=== PATIENT | male | born 1970 | race Caucasian/White ===

== ENCOUNTER → 2018-11-02 | Outpatient (CLI) | payer OTHER ==
--- NOTE | 2018-11-02 22:33 | MR ---
EXAMINATION TYPE: MR knee LT wo con DATE OF EXAM: 11/02/2018 COMPARISON: NONE HISTORY: Lt knee pain x 2 mos TECHNIQUE: Multiplanar, multisequence images of the knee is performed without IV contrast. FINDINGS: MEDIAL MENISCUS: Anterior horn is intact without tear. Increased oblique signal posterior horn appear s to extend to inferior articular surface sagittal image 26. Some medial extrusion of medial meniscus as seen on coronal images. LATERAL MENISCUS: Anterior and posterior horns are intact without tear. CRUCIATE LIGAMENTS: The anterior and posterior cruciate ligaments are intact and unremarkable. COLLATERAL LIGAMENTS: The medial collateral ligament and lateral collateral ligament complex are inta ct and unremarkable. EXTENSOR MECHANISM: Visualized quadriceps and patellar tendons are intact. EFFUSION: There is small suprapatellar joint effusion. POPLITEAL CYST: No popliteal/maxwell cyst. TRICOMPARTMENT SPACES: Mild tricompartment joint space loss and tricompartmental joint space spurring CARTILAGE: Some chondromalacia patella with thinning of articular cartilage along posterior patellar pole inferior aspect. Some thinning of articular cartilage medial tibial femoral compartment. BONE MARROW SIGNAL: Focus of heterogeneous increased T2 signal posterior central patella axial image 22 and sagittal image 16 as site of cartilaginous loss. OTHER: No additional significant abnormality is appreciated. IMPRESSION: 1. Oblique full thickness tear posterior horn medial meniscus. 2. Mild to moderate tricompartment degenerative changes as detailed above. 3. Small suprapatellar joint effusion.
== END | disposition home or self-care (01) ==
LOC: RADMRIMAIN 20:53
PROVIDERS: ATTEND Orthopaedic Surgery Sports Medicine
DX: S83.242A Other tear of medial meniscus, current injury, left knee, initial encounter (principal); M17.12 Unilateral primary osteoarthritis, left knee

== ENCOUNTER → 2019-04-19 | Outpatient (CLI) | payer OTHER ==
[2019-04-19 14:03] LABS: Basophils # (A) 0.2 k/uL (0-0.2); Basophils % (A) 3 %; Eosinophils # (A) 0.5 k/uL (0-0.7); Eosinophils % (A) 6 %; HCT 49.1 % (39.0-53.0); HGB 16.5 gm/dL (13.0-17.5); Lymphocytes # (A) 2.8 k/uL (1.0-4.8); Lymphocytes % (A) 33 %; MCHC 33.6 g/dL (31.0-37.0); MCV 86.4 fL (80.0-100.0); Monocytes # (A) 0.4 k/uL (0-1.0); Monocytes % (A) 5 %; Neutrophils # (A) 4.3 k/uL (1.3-7.7); Neutrophils % (A) 52 %; Platelet Count 244 k/uL (150-450); RBC 5.68 m/uL (4.30-5.90); RDW 13.3 % (11.5-15.5); WBC 8.3 k/uL (3.8-10.6)
== END ==
LOC: LABPAT 12:49
PROVIDERS: ATTEND Orthopaedic Surgery Sports Medicine
DX: Z01.818 Encounter for other preprocedural examination (principal); Z01.812 Encounter for preprocedural laboratory examination
CPT/HCPCS: 36415; 85025; 93005

== ENCOUNTER 2019-04-21 10:56 | Day surgery (SDC) | payer OTHER ==
[2019-04-19 09:50] VITALS: BMI 54.2
[~2019-04-21 10:56] MED LIST: DEXAMETHASONE SOD PHOSPHATE 10 MG/ML 1 ML VIAL IV ONE; HYDROmorphone 0.5 MG/0.5 ML SYRINGE IVP PRN; LACTATED RINGERS 1,000 ML IV SCH; MIDAZOLAM 2 MG/2 ML VIAL IV PRN; ONDANSETRON 4 MG/2 ML VIAL IVP ONE; SCOPOLAMINE 1.5MG/72HR PATCH TRANSDERM ONE; ceFAZolin 3 GM in SODIUM CHLORIDE 0.9% 100 ML IVPB ONE
[2019-04-21] MEDS ORDERED: SUCCINYLCHOLINE CHLORIDE VIAL 200 MG/10 ML VIAL IV ONE (12:27)
[2019-04-21] MEDS ORDERED: PROPOFOL 10 MG/ML 20 ML VIAL IV ONE (12:27)
[2019-04-21] MEDS ORDERED: MIDAZOLAM 2 MG/2 ML VIAL ONE (12:27)
[2019-04-21] MEDS ORDERED: LIDOCAINE 1% INJ 10MG/ML (20 ML MDV) ONE (12:27)
[2019-04-21] MEDS ORDERED: fentaNYL (PF) 50 MCG/ML 2 ML AMP ONE (12:27)
[2019-04-21] MEDS ORDERED: BUPIVACAINE (PF) 0.25% 30 ML VIAL SQ ONE ×2 (12:45)
[2019-04-21 13:37] VITALS: TEMP 97.6
[2019-04-21] MEDS ORDERED: KETOROLAC 30 MG/ML 1 ML VIAL IVP ONE (13:44)
[2019-04-21 14:21] VITALS: RESP 16
--- NOTE | 2019-04-21 14:23 | OP ---
OPERATIVE REPORT DATE OF PROCEDURE: 04/21/2019 PREOPERATIVE DIAGNOSIS: Left knee posterior horn medial meniscus tear. POSTOPERATIVE DIAGNOSES: 1. Left knee posterior horn medial meniscus tear. 2. Left knee thickened infrapatellar and medial shelf plica. 3. Left knee chondromalacia of the medial femoral condyle. 4. Left knee multiple intra-articular loose bodies. PROCEDURE PERFORMED: 1. Left knee arthroscopic partial meniscectomy. 2. Left knee arthroscopic lysis of adhesions. 3. Left knee arthroscopic chondroplasty of medial femoral condyle. 4. Left knee arthroscopic removal of loose body. SURGEON: Joshua Duff MD ANESTHESIA: General endotracheal. ESTIMATED BLOOD LOS: Less than 20 mL. TOURNIQUET: None. DRAINS: None. COMPLICATIONS: None apparent. DISPOSITION: Postanesthesia care unit. INDICATIONS: Zelalem is a very pleasant 48-year-old male with left knee pain. Physical examination and MRI are consistent with tearing of the posterior horn of the medial meniscus. I had a long discussion with him with regard to treatment options. At this point, he feels if he has failed conservative management and would like to proceed with operative intervention. The risks of the procedure were discussed with him in detail. These risks include, but are not limited to risk of infection, nerve damage, bleeding, pain, and a small risk of deep vein thrombosis which could lead to fatal pulmonary embolism. The patient understands these risks and wishes to proceed with surgical procedure. Examination under anesthesia range of motion: Right full, left full, effusion right none, left mild Nini'. Right normal good end point. Left normal good end point. Pivot shift right grade 0, left grade 0. Posterior drawer right with good end point. Left normal good end point. Varus laxity right none, left none valgus laxity right none, left none. External rotation right normal, left normal. ARTHROSCOPIC FINDINGS: Suprapatellar pouch was normal. Medial gutter thickened medial shelf plica. Lateral gutter was normal. Grade 2 change on the central aspect of patella, trochlea. Diffuse grade II-III change of the central aspect of the trochlea. Patellar tracking is normal. Medial femoral condyle had areas of grade II with small areas of grade III change on the posterior aspect of the medial femoral condyle. There were multiple loose chondral flaps noted around the periphery. Medial tibial plateau. Mild grade 1 change medial meniscus complex tear of the posterior horn of the medial meniscus. Lateral femoral condyle normal chondral surfaces, lateral tibial plateau. Mild grade 1 change. Lateral meniscus was normal. Anterior cruciate ligament complete. Normal posterior cruciate ligament. Normal infrapatellar notch thickened inferior plica with multiple cartilaginous loose bodies. The largest of which was approximately 5 mm in diameter. DESCRIPTION OF THE PROCEDURE: Patient identified in the preoperative holding area. Surgical sites marked by both the patient and myself. He was given 2 g of Ancef IV for appropriate left prophylactic purposes present transferred to the operative suite. He was placed supine on the operative table. General anesthetic was then administered and dosed per the anesthesia without apparent complication. Examination under anesthesia was then performed. The findings noted above. Tourniquet was then placed high on the left upper thigh well-padded in preparation for surgery. Tourniquet was not applied to the left upper extremity. Left lower extremity. The patient's left lower extremity than prepped and draped in usual sterile fashion. Standard surgical pause undertaken to ensure that we were operating the correct site and that appropriate preoperative antibiotics were given. All staff were in agreement we proceeded. The knee was then insufflated to 120 mL sterile saline solution. This was done to gradually distend the joint. A standard inferolateral portal was then made. A 30 degree arthroscope. The suprapatellar pouch. The scope pump pressure was set to 60 mmHg and maintained at that level throughout the entire case. Next utilizing an 18- gauge spinal needle to topically localize the placement, the inferomedial port was made under direct visualization. A standard diagnostic arthroscopy of the knee was then performed. FINDINGS: Noted above. Attention 1st drawn to the inferior notch. A 2nd inferior plica. There was also thickened medial shelf plica and multiple cartilaginous loose bodies noted within the anterior compartment knee. The plica was released with a biter, debrided back to stable tissue utilizing synovial shaver. The chondral loose bodies were removed with synovial shaver as well as with a pituitary grasper. Attention was drawn to the medial compartment. A complex tear of the posterior horn of the medial meniscus. This was degenerative in nature. This tear was deemed a repair over the meniscus tear was then debrided with a combination of biters and a shaver back to stable tissue. Approximately 50% of the posterior horn of the medial meniscus remained intact after debridement. Next, the arthroscope was placed medial to the posterior cruciate ligament through the notch to the posteromedial compartment knee. Of note, there were no residual flap tears or loose bodies noted. The posterior root attachment was carefully inspected and found to be intact. At this point time no further exam. At this point time was proceeded to evaluate the medial femoral condyle. Two fairly significant loose chondral flaps around the periphery of a grade 2-3 chondral wear on the posterior aspect of the weightbearing surface medial femoral condyle. A very gentle chondroplasty was then performed to debride the loose chondral flaps back to stable tissue. This was done with a synovial shaver very carefully with synovial shaver. At this point time no further work was deemed necessary. The knee was thoroughly irrigated thoroughly irrigated and then drained with an outflow cannula. The scope was removed from the knee. Subscript portals were then closed with 3-0 nylon interrupted suture. Sterile compressive dressing was then applied. All sponge and needle counts were deemed correct prior to closure. The patient tolerated the procedure without apparent complication. He was transferred recovery room in stable condition. MMODL / IJN: [id number] /
[2019-04-21 15:01] VITALS: BP 131/74; PULSE 71
== END 2019-04-21 15:21 | disposition home or self-care (01) ==
LOC: OR 10:56
PROVIDERS: ATTEND Orthopaedic Surgery Sports Medicine
DX: S83.242A Other tear of medial meniscus, current injury, left knee, initial encounter (principal); X50.1XXA Overexertion from prolonged static or awkward postures, initial encounter; M23.8X2 Other internal derangements of left knee; M67.52 Plica syndrome, left knee; M94.262 Chondromalacia, left knee; M23.42 Loose body in knee, left knee; I10 Essential (primary) hypertension; R00.2 Palpitations; R06.02 Shortness of breath; Z90.49 Acquired absence of other specified parts of digestive tract; E66.9 Obesity, unspecified; Z68.43 Body mass index [BMI] 50.0-59.9, adult; Z79.899 Other long term (current) drug therapy; Z91.09 Other allergy status, other than to drugs and biological substances
CPT/HCPCS: 84132; 29881; J2250; J0330; J1100; J0690; J2405; J2001; J3010; J1885; J2704

== ENCOUNTER → 2019-07-15 | Outpatient (CLI) | payer OTHER ==
--- NOTE | 2019-07-15 14:34 | CT ---
EXAMINATION TYPE: CT lumbar spine wo con DATE OF EXAM: 07/15/2019 COMPARISON: HISTORY: Low Back Pain x 20 years. Numbness and weakness down both legs. Hx of back surgery in 2008 CT DLP: 1761 mGycm CONTRAST: None TECHNIQUE: CT of the lumbar spine is performed on a spiral scan at 3 mm thick sections. Reconstructed images are performed in the coronal and sagittal planes. FINDINGS: T12-L1: There is disc space narrowing. Some endplate spurring is present with mild anterior thecal sa c contact. No AP spinal canal stenosis or neural foraminal stenosis is present. L1-L2: Vacuum disc phenomenon is present. Endplate spurring is present on the left paracentral region with mild to moderate anterior thecal sac compression. No AP spinal canal stenosis is present. Moder ate bilateral foraminal narrowing is present. L2-L3: There is narrowing of disc height to this level. Vacuum disc phenomenon is present. No AP spin al canal stenosis is present. Neural foramen are patent. L3-L4: Vacuum disc phenomenon is present. There is mild disc space narrowing. No focal disc herniatio n is evident. No AP spinal canal stenosis is evident. There is moderate right and mild left foraminal narrowing. L4-L5: Broad-based disc bulge is present with anterior thecal sac contact. No AP spinal canal stenosi s is present. Mild to moderate bilateral foraminal narrowing is present. Vacuum disc phenomenon is pr esent. L5-S1: There is mild narrowing of disc space. No focal disc herniation is evident. No spinal canal st enosis or neural foraminal stenosis is present. Facet degenerative changes and vacuum phenomenon are present. Vertebral alignment appears normal. Sacroiliac joint degenerative changes and vacuum phenomenon are p resent. Left renal stone inferior pole is present. IMPRESSION: 1. Multilevel degenerative disc changes. 2. Foraminal narrowing which appears mild to moderate L3-4 and L4-5
== END | disposition home or self-care (01) ==
LOC: RADCTMAIN 08:05
PROVIDERS: ATTEND Family Medicine
DX: M51.36 Other intervertebral disc degeneration, lumbar region (principal); M48.061 Spinal stenosis, lumbar region without neurogenic claudication; Z88.5 Allergy status to narcotic agent
CPT/HCPCS: 72131

== ENCOUNTER 2020-06-06 12:36 | Observation (INO) | payer OTHER ==
[2020-06-06] MEDS ORDERED: ASPIRIN 81 MG PO STA (13:21)
[2020-06-06 13:46] LABS: Basophils # (A) 0.2 k/uL (0-0.2); Basophils % (A) 2 %; Eosinophils # (A) 0.5 k/uL (0-0.7); Eosinophils % (A) 4 %; HCT 46.1 % (39.0-53.0); Lymphocytes # (A) 2.7 k/uL (1.0-4.8); Lymphocytes % (A) 24 %; MCHC 34.8 g/dL (31.0-37.0); MCV 83.3 fL (80.0-100.0); Mean Platelet Volume 7.6; Monocytes # (A) 0.5 k/uL (0-1.0); Monocytes % (A) 5 %; Neutrophils # (A) 7.3 k/uL (1.3-7.7); Neutrophils % (A) 64 %; Platelet Count 326 k/uL (150-450); RBC 5.53 m/uL (4.30-5.90); RDW 12.7 % (11.5-15.5); WBC 11.3 k/uL (3.8-10.6)
[2020-06-06 13:56] LABS: ALT 42 U/L (4-49); AST 48 U/L (17-59); African American GFR (CKD) >90 (>60 ml/min/1.73 sqM); Albumin 4.2 g/dL (3.5-5.0); Alkaline Phosphatase 74 U/L (38-126); Anion Gap 8 mmol/L; Blood Urea Nitrogen 20 mg/dL (9-20); Calcium 9.6 mg/dL (8.4-10.2); Carbon Dioxide 29 mmol/L (22-30); Chloride 100 mmol/L (98-107); Glucose 139 mg/dL (74-99); INR 0.9 (<1.2); Non-African American GFR(CKD) >90 (>60 ml/min/1.73 sqM); Partial Thromboplastin Time 24.7 sec (22.0-30.0); Prothrombin Time 10.2 sec (9.0-12.0); Sodium 137 mmol/L (137-145); Total Protein 8.3 g/dL (6.3-8.2)
[2020-06-06 14:03] LABS: Potassium 4.3 mmol/L (3.5-5.1)
--- NOTE | 2020-06-06 14:38 | US ---
EXAMINATION TYPE: US scrotum with doppler. Grayscale and color Doppler Duplex imaging performed of t luisa scrotum. DATE OF EXAM: 06/06/2020 COMPARISON: NONE CLINICAL HISTORY: scrotum pain at times. Right medial groin and scrotal pain, pelvic pain x 3 weeks n oted after coughing spells. EXAM MEASUREMENTS: TESTICLES: Right Testicle: 4.9 x 3.1 x 2.8 cm Left Testicle: 4.5 x 2.9 x 2.4 cm EPIDIDYMIS HEAD: Right Epididymis: 1.3 x 1.0 x 1.1 cm Left Epididymis: 1.2 x 1.1 x 1.2 cm PW/ color flow Doppler was performed to assess for testicular vascularity; good bilateral color flow and waveforms are seen. There is no evidence of testicular torsion. Presence of hydroceles: seen in right scrotal sac = 0.8 x 0.9 x 0.9cm Presence of varicoceles: no Patent upper Right GSV is noted and is also area of pain. IMPRESSION: 1. Small right hydrocele
--- NOTE | 2020-06-06 14:47 | XR ---
EXAMINATION TYPE: XR chest 2V DATE OF EXAM: 06/06/2020 COMPARISON: NONE TECHNIQUE: PA and lateral views submitted. HISTORY: Chest pain FINDINGS: The lungs are clear and there is no pneumothorax, pleural effusion, or focal pneumonia. Coarsened t here are perihilar interstitium. No pleural effusion or pneumothorax. No focal pneumonia. IMPRESSION: 1. Chronic for bronchitis or interstitial pneumonitis.
--- NOTE | 2020-06-06 15:45 | CT ---
EXAMINATION TYPE: CT angio tho/abd W Run Off DATE OF EXAM: 06/06/2020 COMPARISON: HISTORY: chest pain, groin pain CT DLP: 5144.2 mGycm Automated exposure control for dose reduction was used. CONTRAST: CT scan of the abdomen pelvis is performed with IV Contrast, patient injected with 125 mL of Isovue 3 70. FINDINGS- LUNGS-peripheral subsegmental consolidation in the right lung. Correlate for pneumonitis. No pleural effusion. No consolidation. Thoracic aorta of normal caliber. Assessment of the aortic root limited d ue to motion. Heart size normal. Evaluation the pulmonary arteries nondiagnostic due to phase imaging LIVER/GB-postcholecystectomy changes. Ill-defined enhancement in the peripheral margin the right lobe the liver on axial image 48 is nonspecific and too small to characterize could represent a flash hem angioma. Six-month follow-up could be obtained to confirm stability.. PANCREAS- No gross abnormality is seen. SPLEEN- No gross abnormality is seen. ADRENALS-1.7 cm myelolipoma or lipoma left adrenal gland.. KIDNEYS/BLADDER-punctate nonobstructing left renal calculus phase of imaging limits assessment for ma ss.. BOWEL-bowel gas pattern nonspecific. LYMPH NODES- No greater than 1cm abdominal or pelvic lymph nodes areappreciated. OSSEOUS STRUCTURES-multilevel severe hypertrophic and degenerative disc disease noted.. OTHER- aorta of normal caliber. Visualized iliac, femoral, popliteal vessels are patent. Assessment trifurcation vessels limited due to diminutive size. Correlate with arteriogram as clinically warrant ed. IMPRESSION- 1. Groundglass changes right lower lobe correlate for pneumonitis. 2. Punctate nonobstructing left renal calculus. 3. See above.
[2020-06-06 16:16] LABS: Appearance,Urine Clear (Clear); Bilirubin,Urine Negative (Negative); Blood,Urine Negative (Negative); Color,Urine Yellow; Glucose,Urine (UA) Negative (Negative); Ketones,Urine Negative (Negative); Leukocyte Esterase,Urine Negative (Negative); Nitrite,Urine Negative (Negative); PH, Urine 6.5 (5.0-8.0); Protein,Urine Negative (Negative); Urobilinogen,Urine <2.0 mg/dL (<2.0)
[2020-06-06 16:17] LABS: Specific Gravity,Urine >1.050 (1.001-1.035)
[2020-06-06] MEDS ORDERED: HYDROmorphone 0.5 MG/0.5 ML SYRINGE IVP STA (16:25)
--- NOTE | 2020-06-06 16:34 | ED ---
Recheck HPI <Manuel Miller - Last Filed: 06/06/20 17:54> - General Source: patient Mode of arrival: ambulatory Limitations: no limitations <Alexandra Chinchilla - Last Filed: 06/06/20 17:59> - General Chief Complaint: Recheck/Abnormal Lab/Rx Stated Complaint: rib & groin pain Time Seen by Provider: 06/06/20 12:56 - History of Present Illness Initial Comments: 49o male presenting for numerous complaints. pt states that a few weeks ago he had left going pain that then went to the right groin, then was both then went away. He states he has also had band like crushing pain around the chest wall that radiates into the back. He denies it feeling like abdominal pain, denies nausea, vomiting, diarrhea, jaw or arm pain. Denies coolness or pallor of the extremities, or leg pain with ambiulation. pt states that he sometimes gets a sharp pain in his scrotum when walking. Denies it being present now. Denies ur inary symptoms. he states he went to a hospital in [place], [place] that was affiliated [facility] after developing the chest/rib discomfort. Pt states that they did two troponins, gave him valium, diludid, and toradol and was sent home. pt states the groin pain came back and he didnt mention it to them there. patient states the chest pain has been present since. he denies dyspnea, dyspnea on exertion, hx of cancer, DVT/PE, trauma, surgeries, immoblization or exogenous hormone use. Patient has no additional complaints. Upon arrival pt appears well nontoxc in no distress. (Alexandra Chinchilla) - Related Data Home Medications Medication Instructions Recorded Confirmed Nebivolol HCl [Bystolic] 10 mg PO DAILY 04/19/19 06/06/20 amLODIPine [Norvasc] 5 mg PO DAILY 04/19/19 06/06/20 hydroCHLOROthiazide [Hydrodiuril] 25 mg PO DAILY 04/19/19 06/06/20 lisinopriL [Zestril] 5 mg PO DAILY 04/19/19 06/06/20 Orphenadrine [Norflex] 100 mg PO Q12H 06/06/20 06/06/20 Sertraline HCl [Zoloft] 50 mg PO DAILY 06/06/20 06/06/20 Allergies Allergy/AdvReac Type Severity Reaction Status Date / Time adhesive Allergy Rash/Hives Verified 06/06/20 13:23 codeine AdvReac Nausea & Verified 06/06/20 13:23 Vomiting Review of Systems ROS Other: All systems not noted in ROS Statement are negative. <Manuel Miller - Last Filed: 06/06/20 17:54> ROS Other: All systems not noted in ROS Statement are negative. <TristinalexusAnnAlexandra L - Last Filed: 06/06/20 17:59> ROS Statement: Those systems with pertinent positive or pertinent negative responses have been documented in the HPI. Past Medical History Past Medical History: GERD/Reflux, Hypertension Additional Past Medical History / Comment(s): hx migraines, History of Any Multi-Drug Resistant Organisms: None Reported Past Surgical History: Back Surgery, Cholecystectomy, Orthopedic Surgery Additional Past Surgical History / Comment(s): surgery for fx rt elbow, Past Anesthesia/Blood Transfusion Reactions: Motion Sickness Past Psychological History: No Psychological Hx Reported Smoking Status: Never smoker Past Alcohol Use History: Occasional Past Drug Use History: Marijuana - Past Family History Mother Family Medical History: No Reported History <TristinalexusAnnAlexandra L - Last Filed: 06/06/20 17:59> General Exam Limitations: no limitations <Alexandra Chinchilla Yanick - Last Filed: 06/06/20 17:59> - General Exam Comments Initial Comments: General: The patient is awake and alert, in no distress Eye: +3 mm pupils are equal, round and reactive to light, extra-ocular movements are intact. No nystagmus. There is normal conjunctiva bilaterally. No signs of icterus. Ears, nose, mouth and throat: There are moist mucous membranes and no oral lesions. Neck: The neck is supple, there is no tenderness or JVD. Cardiovascular: There is a regular rate and rhythm. No murmur, rub or gallop is appreciated. Respiratory: Lungs are clear to auscultation, respirations are non-labored, breath sounds are equal. No wheezes, stridor, rales, or rhonchi. Gastrointestinal: No skin changes, no ventral or inguinal hernias appreciated. turn and cough was preformed, no testicular pain., Soft, non-distended, non- tender abdomen without masses or organomegaly noted. There is no rebound or guarding present. No CVA tenderness. Musculoskeletal: Normal ROM, no tenderness. Strength 5/5. Sensation intact. radial and DP pulses equal bilaterally 2+. Neurological: A&O x 3. CN II-XII intact grossly, There are no obvious motor or sensory deficits. Coordination appears grossly intact. Speech is normal. Skin: Skin is warm and dry and no rashes or lesions are noted. Psychiatric: Cooperative, appropriate mood & affect, normal judgment. (Alexandra Chinchilla) Course Vital Signs 06/06/20 06/06/20 12:45 14:35 Temperature 98.3 F Pulse Rate 78 65 Respiratory 18 18 Rate Blood Pressure 125/82 114/79 O2 Sat by Pulse 94 L 98 Oximetry Medical Decision Making - Lab Data Result diagrams: 06/06/20 13:32 06/06/20 13:32 <Manuel Miller - Last Filed: 06/06/20 17:54> - Lab Data Result diagrams: 06/06/20 13:32 06/06/20 13:32 <Alexandra Chinchilla - Last Filed: 06/06/20 17:59> - Medical Decision Making Patient reevaluated and reexamined by myself, Dr. Miller. I agree with PA findings. This includes diagnostic interpretation and treatment plan. Patient is been having chest discomfort over the past couple of weeks that does somewhat worsen with exertion. Patient describes this as pressure or tightness that wraps around his chest. Case was discussed with Dr. Orozco, who will admit his with cardiology consult for stress test. (Manuel Miller) - Lab Data Lab Results 06/06/20 06/06/20 06/06/20 Range/Units 13:32 13:32 13:32 WBC 11.3 H (3.8-10.6) k/uL RBC 5.53 (4.30-5.90) m/uL Hgb 16.0 (13.0-17.5) gm/dL Hct 46.1 (39.0-53.0) % MCV 83.3 (80.0-100.0) fL MCH 29.0 (25.0-35.0) pg MCHC 34.8 (31.0-37.0) g/dL RDW 12.7 (11.5-15.5) % Plt Count 326 (150-450) k/uL MPV 7.6 Neutrophils % 64 % Lymphocytes % 24 % Monocytes % 5 % Eosinophils % 4 % Basophils % 2 % Neutrophils # 7.3 (1.3-7.7) k/uL Lymphocytes # 2.7 (1.0-4.8) k/uL Monocytes # 0.5 (0-1.0) k/uL Eosinophils # 0.5 (0-0.7) k/uL Basophils # 0.2 (0-0.2) k/uL PT (9.0-12.0) sec INR (<1.2) APTT (22.0-30.0) sec D-Dimer (<0.60) mg/L FEU Sodium 137 (137-145) mmol/L Potassium 4.3 (3.5-5.1) mmol/L Chloride 100 (98-107) mmol/L Carbon Dioxide 29 (22-30) mmol/L Anion Gap 8 mmol/L BUN 20 (9-20) mg/dL Creatinine 0.82 (0.66-1.25) mg/dL Est GFR (CKD-EPI)AfAm >90 (>60 ml/min/1.73 sqM) Est GFR (CKD-EPI)NonAf >90 (>60 ml/min/1.73 sqM) Glucose 139 H (74-99) mg/dL Plasma Lactic Acid Ismael 1.3 (0.7-2.0) mmol/L Calcium 9.6 (8.4-10.2) mg/dL Total Bilirubin 1.0 (0.2-1.3) mg/dL AST 48 (17-59) U/L ALT 42 (4-49) U/L Alkaline Phosphatase 74 (38-126) U/L Troponin I (0.000-0.034) ng/mL NT-Pro-B Natriuret Pep pg/mL Total Protein 8.3 H (6.3-8.2) g/dL Albumin 4.2 (3.5-5.0) g/dL Lipase (23-300) U/L Urine Color Urine Appearance (Clear) Urine pH (5.0-8.0) Ur Specific [place] (1.001-1.035) Urine Protein (Negative) Urine Glucose (UA) (Negative) Urine Ketones (Negative) Urine Blood (Negative) Urine Nitrite (Negative) Urine Bilirubin (Negative) Urine Urobilinogen (<2.0) mg/dL Ur Leukocyte Esterase (Negative) 06/06/20 06/06/20 06/06/20 Range/Units 13:32 13:32 13:32 WBC (3.8-10.6) k/uL RBC (4.30-5.90) m/uL Hgb (13.0-17.5) gm/dL Hct (39.0-53.0) % MCV (80.0-100.0) fL MCH (25.0-35.0) pg MCHC (31.0-37.0) g/dL RDW (11.5-15.5) % Plt Count (150-450) k/uL MPV Neutrophils % % Lymphocytes % % Monocytes % % Eosinophils % % Basophils % % Neutrophils # (1.3-7.7) k/uL Lymphocytes # (1.0-4.8) k/uL Monocytes # (0-1.0) k/uL Eosinophils # (0-0.7) k/uL Basophils # (0-0.2) k/uL PT 10.2 (9.0-12.0) sec INR 0.9 (<1.2) APTT 24.7 (22.0-30.0) sec D-Dimer 1.22 H (<0.60) mg/L FEU Sodium (137-145) mmol/L Potassium (3.5-5.1) mmol/L Chloride (98-107) mmol/L Carbon Dioxide (22-30) mmol/L Anion Gap mmol/L BUN (9-20) mg/dL Creatinine (0.66-1.25) mg/dL Est GFR (CKD-EPI)AfAm (>60 ml/min/1.73 sqM) Est GFR (CKD-EPI)NonAf (>60 ml/min/1.73 sqM) Glucose (74-99) mg/dL Plasma Lactic Acid Ismael (0.7-2.0) mmol/L Calcium (8.4-10.2) mg/dL Total Bilirubin (0.2-1.3) mg/dL AST (17-59) U/L ALT (4-49) U/L Alkaline Phosphatase (38-126) U/L Troponin I <0.012 (0.000-0.034) ng/mL NT-Pro-B Natriuret Pep 71 pg/mL Total Protein (6.3-8.2) g/dL Albumin (3.5-5.0) g/dL Lipase (23-300) U/L Urine Color Urine Appearance (Clear) Urine pH (5.0-8.0) Ur Specific [place] (1.001-1.035) Urine Protein (Negative) Urine Glucose (UA) (Negative) Urine Ketones (Negative) Urine Blood (Negative) Urine Nitrite (Negative) Urine Bilirubin (Negative) Urine Urobilinogen (<2.0) mg/dL Ur Leukocyte Esterase (Negative) 06/06/20 06/06/20 06/06/20 Range/Units 13:32 15:37 16:11 WBC (3.8-10.6) k/uL RBC (4.30-5.90) m/uL Hgb (13.0-17.5) gm/dL Hct (39.0-53.0) % MCV (80.0-100.0) fL MCH (25.0-35.0) pg MCHC (31.0-37.0) g/dL RDW (11.5-15.5) % Plt Count (150-450) k/uL MPV Neutrophils % % Lymphocytes % % Monocytes % % Eosinophils % % Basophils % % Neutrophils # (1.3-7.7) k/uL Lymphocytes # (1.0-4.8) k/uL Monocytes # (0-1.0) k/uL Eosinophils # (0-0.7) k/uL Basophils # (0-0.2) k/uL PT (9.0-12.0) sec INR (<1.2) APTT (22.0-30.0) sec D-Dimer (<0.60) mg/L FEU Sodium (137-145) mmol/L Potassium (3.5-5.1) mmol/L Chloride (98-107) mmol/L Carbon Dioxide (22-30) mmol/L Anion Gap mmol/L BUN (9-20) mg/dL Creatinine (0.66-1.25) mg/dL Est GFR (CKD-EPI)AfAm (>60 ml/min/1.73 sqM) Est GFR (CKD-EPI)NonAf (>60 ml/min/1.73 sqM) Glucose (74-99) mg/dL Plasma Lactic Acid Ismael (0.7-2.0) mmol/L Calcium (8.4-10.2) mg/dL Total Bilirubin (0.2-1.3) mg/dL AST (17-59) U/L ALT (4-49) U/L Alkaline Phosphatase (38-126) U/L Troponin I <0.012 (0.000-0.034) ng/mL NT-Pro-B Natriuret Pep pg/mL Total Protein (6.3-8.2) g/dL Albumin (3.5-5.0) g/dL Lipase 35 (23-300) U/L Urine Color Yellow Urine Appearance Clear (Clear) Urine pH 6.5 (5.0-8.0) Ur Specific [place] >1.050 H (1.001-1.035) Urine Protein Negative (Negative) Urine Glucose (UA) Negative (Negative) Urine Ketones Negative (Negative) Urine Blood Negative (Negative) Urine Nitrite Negative (Negative) Urine Bilirubin Negative (Negative) Urine Urobilinogen <2.0 (<2.0) mg/dL Ur Leukocyte Esterase Negative (Negative) Disposition <Manuel Miller - Last Filed: 06/06/20 17:54> Is patient prescribed a controlled substance at d/c from ED?: No Time of Disposition: 17:59 Decision to Admit Reason: Admit from EC Decision Date: 06/06/20 Decision Time: 17:59 <Alexandra Chinchilla - Last Filed: 06/06/20 17:59> Clinical Impression: Chest discomfort, Groin pain Disposition: ADMITTED IP TO THIS HOSP Condition: Stable Referrals: Davonte Mcmillan Jr, DO [Primary Care Provider] - 1-2 days
[2020-06-06] MEDS ORDERED: NITROGLYCERIN SL TABS 0.4 MG TAB SUBLINGUAL PRN (17:55)
[2020-06-06] MEDS ORDERED: HYDROmorphone 0.5 MG/0.5 ML SYRINGE IM PRN (21:11)
[2020-06-07 02:11] LABS: Cholesterol 195 mg/dL (<200); HDL Cholesterol 36 mg/dL (40-60); LDL Cholesterol,Calculated 144 mg/dL (0-99); Triglycerides 76 mg/dL (<150)
[2020-06-07] MEDS: HYDROmorphone 0.5 MG/0.5 ML SYRINGE IVP PRN ×2 (04:36→11:01)
[2020-06-07 08:42] VITALS: RESP 16
[2020-06-07] MEDS ORDERED: ASPIRIN 325 MG TAB PO SCH (09:00)
[2020-06-07] MEDS ORDERED: ATORVASTATIN 40 MG TAB PO SCH (10:15)
--- NOTE | 2020-06-07 13:14 | P.CRDCN ---
History of Present Illness History of present illness: HISTORY OF PRESENTING ILLNESS This is a pleasant 49-year-old male past medical history significant for hypertension, gastroesophageal reflux disease, marijuana use and morbid obesity. 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 We have been asked to see in consultation for chest pain. He states he has been having a discomfort in his chest for the previous 10 days. He states the discomfort is in the midsternal region and wraps around his entire upper torso worse with breathing, movement or spontaneous cough. He also is complaining of discomfort in his bilateral groin site radiates down his legs worse on the right. He denies significant shortness of breath although he states it's difficult for him to take a deep breath secondary to the pain. He denies dizziness or palpitations. DIAGNOSTICS EKG reveals sinus mechanism with first-degree AV block no acute ST or T wave abnormalities noted. Telemetry tracings indicate sinus and sinus mechanism with no arrhythmias noted. Chest xray indicates chronic bronchitis or interstitial pneumonitis. CT of the aorta with runoff reveals groundglass changes of the right lower lobe consistent with pneumonitis, aorta is normal caliber, visualized iliac femoral and popliteal vessels are patent. Laboratory reviewed, WBC 11.3, hemoglobin 16, platelets 326, d-dimer 1.22, sodium 137, potassium 4.3, creatinine 0.82, cardiac enzymes negative 3, proBNP 71, LDL 144 and HDL 36. Current cardiac medications include by systolic 10 mg daily, amlodipine 5 mg daily, hydrochlorothiazide 25 mg daily and lisinopril 5 mg daily. REVIEW OF SYSTEMS At the time of my exam: CONSTITUTIONAL: Denies fever or chills. CARDIOVASCULAR: Complains of pleuritic chest pain. Denies shortness of breath, orthopnea, PND or palpitations. RESPIRATORY: Denies cough. GASTROINTESTINAL: Denies abdominal pain, diarrhea, constipation, nausea or vomiting. MUSCULOSKELETAL: Complains of bilateral groin and lower extremity pain with movement. NEUROLOGIC: Denies numbness, tingling, headacbe or weakness. ENDOCRINE: Denies fatigue, weight change, polydipsia or polyurina. GENITOURINARY: Denies burning, hematuria or urgency with micturation. HEMATOLOGIC: Denies history of anemia or bleeding. PHYSICAL EXAMINATION Blood pressure 118/73 heart rate 67 afebrile and maintaining oxygen saturation on room air. CONSTITUTIONAL: No apparent distress. Morbidly obese. HEENT: Head is normocephalic. Pupils are equal, round. Sclerae anicteric. Mucous membranes of the mouth are moist. No JVD. No carotid bruit. CHEST EXAMINATION: Lungs are clear to auscultation. Diffuse chest pain with deep breathing and point tenderness on palpation. HEART EXAMINATION: Regular rate and rhythm. S1, S2 heard. No murmurs, gallops or rub. ABDOMEN: Soft, nontender. Positive bowel sounds. EXTREMITIES: 2+ peripheral pulses, no lower extremity edema and no calf tenderness. NEUROLOGIC EXAMINATION: Patient is awake, alert and oriented x3. ASSESSMENT Chest pain, pleuritic. Leukocytosis Bilateral groin and lower extremity pain with movement Hypertension Dyslipidemia Morbid obesity, BMI 54 PLAN Pain is atypical for angina. Pleuritic in nature and likely related to underlying pneumonitis. An acute coronary event has been ruled out. Ongoing medical management and treatment. Recommend initiation of atorvastatin 40 mg daily for target LDL of less than 100. Consider outpatient stress testing when pneumonitis improved. Thank you kindly for this consultation. Nurse Practitioner note has been reviewed, I agree with a documented findings and plan of care. Patient was seen and examined. Past Medical History Past Medical History: GERD/Reflux, Hypertension Additional Past Medical History / Comment(s): hx migraines, History of Any Multi-Drug Resistant Organisms: None Reported Past Surgical History: Back Surgery, Cholecystectomy, Orthopedic Surgery Additional Past Surgical History / Comment(s): surgery for fx rt elbow, Past Anesthesia/Blood Transfusion Reactions: Motion Sickness Past Psychological History: No Psychological Hx Reported Smoking Status: Never smoker Past Alcohol Use History: Occasional Past Drug Use History: Marijuana - Past Family History Mother Family Medical History: No Reported History Medications and Allergies Home Medications Medication Instructions Recorded Confirmed Type Nebivolol HCl [Bystolic] 10 mg PO DAILY 04/19/19 06/06/20 History amLODIPine [Norvasc] 5 mg PO DAILY 04/19/19 06/06/20 History hydroCHLOROthiazide [Hydrodiuril] 25 mg PO DAILY 04/19/19 06/06/20 History lisinopriL [Zestril] 5 mg PO DAILY 04/19/19 06/06/20 History Orphenadrine [Norflex] 100 mg PO Q12H 06/06/20 06/06/20 History Sertraline HCl [Zoloft] 50 mg PO DAILY 06/06/20 06/06/20 History Famotidine [Pepcid] 20 mg PO BID #30 tablet 06/07/20 Rx Naproxen Sodium [Anaprox DS] 550 mg PO Q12HR #28 tab 06/07/20 Rx Allergies Allergy/AdvReac Type Severity Reaction Status Date / Time adhesive Allergy Rash/Hives Verified 06/06/20 13:23 codeine AdvReac Nausea & Verified 06/06/20 13:23 Vomiting Physical Exam Vitals: Vital Signs Temp Pulse Pulse Resp BP BP Pulse Ox 06/07/20 03:03 68 18 06/07/20 03:00 98.2 F 65 18 155/83 95 06/06/20 22:36 98.3 F 83 18 127/80 98 06/06/20 20:37 98.0 F 68 18 123/77 95 06/06/20 14:35 65 18 114/79 98 06/06/20 12:45 98.3 F 78 18 125/82 94 L Intake and Output 06/06/20 06/07/20 06/07/20 22:59 06:59 14:59 Other: Voiding Method Toilet # Voids 1 Weight 183.705 kg Results 06/06/20 13:32 06/06/20 13:32 Cardiac Enzymes 06/06/20 06/06/20 06/06/20 Range/Units 13:32 13:32 16:11 AST 48 (17-59) U/L Troponin I <0.012 <0.012 (0.000-0.034) ng/mL 06/06/20 Range/Units 19:23 AST (17-59) U/L Troponin I <0.012 (0.000-0.034) ng/mL Coagulation 06/06/20 Range/Units 13:32 PT 10.2 (9.0-12.0) sec APTT 24.7 (22.0-30.0) sec Lipids 06/06/20 Range/Units 13:32 Triglycerides 76 (<150) mg/dL Cholesterol 195 (<200) mg/dL HDL Cholesterol 36 L (40-60) mg/dL CBC 06/06/20 Range/Units 13:32 WBC 11.3 H (3.8-10.6) k/uL RBC 5.53 (4.30-5.90) m/uL Hgb 16.0 (13.0-17.5) gm/dL Hct 46.1 (39.0-53.0) % Plt Count 326 (150-450) k/uL Comprehensive Metabolic Panel 06/06/20 Range/Units 13:32 Sodium 137 (137-145) mmol/L Potassium 4.3 (3.5-5.1) mmol/L Chloride 100 (98-107) mmol/L Carbon Dioxide 29 (22-30) mmol/L BUN 20 (9-20) mg/dL Creatinine 0.82 (0.66-1.25) mg/dL Glucose 139 H (74-99) mg/dL Calcium 9.6 (8.4-10.2) mg/dL AST 48 (17-59) U/L ALT 42 (4-49) U/L Alkaline Phosphatase 74 (38-126) U/L Total Protein 8.3 H (6.3-8.2) g/dL Albumin 4.2 (3.5-5.0) g/dL Current Medications Generic Name Dose Route Start Last Admin Trade Name Freq PRN Reason Stop Dose Admin Aspirin 325 mg 06/07/20 09:00 Aspirin 325 Mg Tab PO DAILY HYACINTH Hydromorphone HCl 0.5 mg 06/06/20 21:17 06/07/20 04:36 Hydromorphone 0.5 Mg/0.5 Ml Syringe IVP 0.5 mg Q3HR PRN Administration Pain Nitroglycerin 0.4 mg 06/06/20 17:55 Nitroglycerin Sl Tabs 0.4 Mg Tab SUBLINGUAL Q5M PRN Chest Pain Intake and Output 06/06/20 06/07/20 06/07/20 22:59 06:59 14:59 Other: Voiding Method Toilet # Voids 1 Weight 183.705 kg 06/06/20 13:32 06/06/20 13:32
[2020-06-07] MEDS ORDERED: NAPROXEN 250 MG TAB PO SCH (15:36)
--- NOTE | 2020-06-07 16:18 | P.HPIM ---
History of Present Illness H&P Date: 06/07/20 Chief Complaint: Worsening right groin pain, chest pain History and Physical and Discharge Summary This a 49-year-old gentleman with past medical history of gastroesophageal reflux disease, hypertension, migraines, occasional marijuana use, obesity and multiple other medical issues presented to the ER with complaints of bilateral groin pain, worsening on the right with occasional radiation down his legs, non-sharp midsternal chest pain with bilateral upper rib cage pain wrapping around his chest sensation with breathing, coughing-clear sputum 3 weeks. Reports he went to a hospital in [facility] over week ago with the same symptoms and was discharged home from the ER with muscle relaxant.Minimal cough-none during the assessment. Denies trauma, Denies shortness of breath. Denies exertional shortness of breath. Denies lightheadedness dizziness or focal deficits. Denies nausea vomiting or diarrhea. Denies change in urinary/bowel habits. Denies abdominal pain. Denies fever, denies diaphoresis, denies clammy or discolored skin. Denies leg edema or calf pain. Reports sometimes has scrotal pain when walking. Scrotum x-ray reported as small right hydrocele Chest x-ray reported chronic bronchitis or interstitial pneumonitis CT of the aorta with runoff reported groundglass changes of the right lower lobe consistent with pneumonitis ,aorta normal caliber, visualized iliac, femoral and popliteal vessels patent, ill defined peripheral margin of the right lobe liverpossible flash hemangioma. EKG not currently downloaded, reported sinus rhythm first degree AV block with no acute ST or T-wave abnormalities per cardiology's review . Troponins negative 3. Afebrile. Minimally elevated WBC 11.3, otherwise hematology unremarkable. D-dimer 1.22. Chemistry unremarkable with the exception of glucose, LDL 144, HDL 36,(cholesterol 195). specific gravity greater than 1.050. VSS,maintaining O2 sats in the high 90s on room air, respiratory rate 16-18. Review of Systems ROS Other: All systems not noted in ROS Statement are negative. ROS Statement: Those systems with pertinent positive or pertinent negative responses have been documented in the HPI. Past Medical History Past Medical History: GERD/Reflux, Hypertension Additional Past Medical History / Comment(s): hx migraines, History of Any Multi-Drug Resistant Organisms: None Reported Past Surgical History: Back Surgery, Cholecystectomy, Orthopedic Surgery Additional Past Surgical History / Comment(s): surgery for fx rt elbow, Past Anesthesia/Blood Transfusion Reactions: Motion Sickness Past Psychological History: No Psychological Hx Reported Smoking Status: Never smoker Past Alcohol Use History: Occasional Past Drug Use History: Marijuana - Past Family History Mother Family Medical History: No Reported History Medications and Allergies Home Medications Medication Instructions Recorded Confirmed Type Nebivolol HCl [Bystolic] 10 mg PO DAILY 04/19/19 06/06/20 History amLODIPine [Norvasc] 5 mg PO DAILY 04/19/19 06/06/20 History hydroCHLOROthiazide [Hydrodiuril] 25 mg PO DAILY 04/19/19 06/06/20 History lisinopriL [Zestril] 5 mg PO DAILY 04/19/19 06/06/20 History Sertraline HCl [Zoloft] 50 mg PO DAILY 06/06/20 06/06/20 History Atorvastatin [Lipitor] 40 mg PO DAILY #30 tab 06/07/20 Rx Famotidine [Pepcid] 20 mg PO BID #30 tablet 06/07/20 Rx Naproxen Sodium [Anaprox DS] 550 mg PO Q12HR #28 tab 06/07/20 Rx Allergies Allergy/AdvReac Type Severity Reaction Status Date / Time adhesive Allergy Rash/Hives Verified 06/06/20 13:23 codeine AdvReac Nausea & Verified 06/06/20 13:23 Vomiting Physical Exam Vitals: Vital Signs Temp Pulse Pulse Resp BP BP Pulse Ox 06/07/20 08:40 96.7 F L 67 16 118/73 95 06/07/20 03:03 68 18 06/07/20 03:00 98.2 F 65 18 155/83 95 06/06/20 22:36 98.3 F 83 18 127/80 98 06/06/20 20:37 98.0 F 68 18 123/77 95 06/06/20 14:35 65 18 114/79 98 Intake and Output 06/06/20 06/07/20 06/07/20 22:59 06:59 14:59 Other: Voiding Method Toilet # Voids 1 1 Weight 183.705 kg PHYSICAL EXAM: VITAL SIGNS: As above GENERAL: Sitting up in bed, no acute distress HEENT: Conjunctivae normal. eyes normal. NECK: No JVD. No thyroid enlargement. No LNs CARDIOVASCULAR: S1, S2 regular. No murmur, rub or gallop. RESPIRATION: Breath sounds diminished in the bases. No rhonchi or crackles. No bronchial breathing. Lateral Bilateral rib cage tenderness to palpation. ABDOMEN: Soft, nontender . No guarding. no masses palpable. No ascites, No hepatosplenomegaly.Bowel sounds heard. No guarding, no rigidity LEGS: No edema. no swelling, no clubbing, no cyanosis, no calf tenderness. 2+ peripheral pulses. PSYCHIATRY: Alert and oriented X3, mood and affect normal. NERVOUS SYSTEM: Cranial N 2-12 grossly normal. Moves all 4 limbs. No focal deficits. Strength and sensation grossly intact. Motor strength 5 out of 5. Skin: Warm and dry, no rash Lymphatic system. No LN neck axilla. Results CBC & Chem 7: 06/06/20 13:32 06/06/20 13:32 Labs: Abnormal Lab Results - Last 24 Hours (Table) 06/06/20 06/06/20 06/06/20 Range/Units 13:32 13:32 13:32 WBC 11.3 H (3.8-10.6) k/uL D-Dimer 1.22 H (<0.60) mg/L FEU Glucose 139 H (74-99) mg/dL Total Protein 8.3 H (6.3-8.2) g/dL LDL Cholesterol, Calc (0-99) mg/dL HDL Cholesterol (40-60) mg/dL Ur Specific [place] (1.001-1.035) 06/06/20 06/06/20 Range/Units 13:32 15:37 WBC (3.8-10.6) k/uL D-Dimer (<0.60) mg/L FEU Glucose (74-99) mg/dL Total Protein (6.3-8.2) g/dL LDL Cholesterol, Calc 144 H (0-99) mg/dL HDL Cholesterol 36 L (40-60) mg/dL Ur Specific [place] >1.050 H (1.001-1.035) Thrombosis Risk Factor Assmnt - Choose All That Apply Each Factor Represents 1 point: Age 41-60 years, Obesity (BMI >25) Other Risk Factors: No Other congenital or acquired thrombophilia - If yes, enter type in comment: No Thrombosis Risk Factor Assessment Total Risk Factor Score: 2 Thrombosis Risk Factor Assessment Level: Low Risk Assessment and Plan Assessment: Chest pain, pleuritic, suspect pneumonitis. Acute coronary event ruled out per cardiology Bilateral groin pain, worse on the right Leukocytosis Chronic bronchitis, possible interstitial pneumonitis Small right hydrocele, outpatient follow-up with urology to be arranged at follow-up visit with PCP,. ill defined peripheral margin of the right lobe liverpossible flash hemangioma, further monitoring outpatient 1.7 cm myelolipoma or lipoma left adrenal gland Punctate Nonobstructing left renal calculus 1 cm abdominal or pelvic lymph nodes Multilevel severe hypertrophic and degenerative disc disease, Hypertension Hyperlipidemia Morbid obesity, BMI 54.9 Plan: Continue current medication regime ,monitoring and symptomatic treatment. Anti-inflammatory initiated. Patient will be discharged home today on Anaprox, pending final DC recommendations and clearance from cardiology. Patient will follow up with Dr. Mcmillan tomorrow in the office for further outpatient workup as discussed. The impression and plan of care has been dictated as directed. : I performed a history and examination of this patient, discussed the same with the dictator. I agree with the dictator's note ,documented as a scribe. Any additional findings or plans will be noted.
[2020-06-07 16:19] VITALS: BP 143/79; PULSE 69; TEMP 98.1
== END 2020-06-07 18:38 ==
LOC: EC 12:36 → 1SOBS 17:55
PROVIDERS: ADMIT Family Medicine; ATTEND Family Medicine
DX: R07.81 Pleurodynia (principal); R10.32 Left lower quadrant pain; R10.31 Right lower quadrant pain; N43.3 Hydrocele, unspecified; J42 Unspecified chronic bronchitis; I10 Essential (primary) hypertension; I44.0 Atrioventricular block, first degree; K21.9 Gastro-esophageal reflux disease without esophagitis; G43.909 Migraine, unspecified, not intractable, without status migrainosus; N20.0 Calculus of kidney; F12.90 Cannabis use, unspecified, uncomplicated; E66.01 Morbid (severe) obesity due to excess calories; Z68.43 Body mass index [BMI] 50.0-59.9, adult; E78.5 Hyperlipidemia, unspecified; D72.829 Elevated white blood cell count, unspecified; R93.2 Abnormal findings on diagnostic imaging of liver and biliary tract; E27.9 Disorder of adrenal gland, unspecified; Z79.899 Other long term (current) drug therapy; Z91.048 Other nonmedicinal substance allergy status; Z88.5 Allergy status to narcotic agent; Z90.49 Acquired absence of other specified parts of digestive tract; Z87.81 Personal history of (healed) traumatic fracture; Z98.890 Other specified postprocedural states
CPT/HCPCS: 93005; 96376; 96372; 96374; 99285; 36415; 85379; 83880; 80061; 80053; 83605; 83690; 84484; 85025; 85610; 85730; 81003; 71046; 93975; 76870; 75635; 71275; G0378 ×2; J1170 ×2; Q9967